=== PATIENT | male | born 1995 | race Asian ===

== ENCOUNTER 2022-04-05 05:58 | Day surgery (SDC) | payer OTHER ==
[~2022-04-05] VITALS: Ht 177.8 cm; Wt 80.3 kg
[2022-04-05] MEDS ORDERED: PROTONIX 40MG T40 MG PO (06:40)
[2022-04-05] MEDS ORDERED: CARAFATE 1GM1 G PO (06:41)
[2022-04-05 07:30] VITALS: BP 119/83; PULSE 64; TEMP 97.5
[2022-04-05 07:45] VITALS: BP 121/70; PULSE 68
[2022-04-05 08:00] VITALS: BP 114/61; PULSE 68
--- NOTE | 2022-04-05 08:05 | NUR ---
0730 RETURNS TO ROOM 1 PER CART. AWAKE, ALERT. RESP UNLABORED. AMBULATES TO RECLINER WITH STAND BY ASSIST. DENIES NAUSEA OR ABD/CHEST PAIN. DENIES DYSPHAGIA. CALL LIGHT AT SIDE. SISTER IN ROOM 0732 DR. LOYA HERE TO VISIT WITH PATIENT 0745 TOLERATES PO APPLE JUICE WITHOUT NAUSEA. SWALLOWS WITHOUT DIFFICULTY 0748 DISCHARGE INSTRUCTIONS REVIEWED. PATIENT VERBALIZES UNDERSTANDING. COPY PROVIDED IN DISCHARGE FOLDER [id number] DRESSES SELF
[2022-04-05 08:13] VITALS: BP 141/90; PULSE 67; TEMP 97.5
== END 2022-04-05 08:05 | disposition home or self-care (01) ==
LOC: SDCO 05:58
DX: K29.50 Unspecified chronic gastritis without bleeding (principal); K44.9 Diaphragmatic hernia without obstruction or gangrene; K21.00 Gastro-esophageal reflux disease with esophagitis, without bleeding
CPT/HCPCS: J2704; J3010; J7120